=== PATIENT | female | born 1995 | race African-American/Black ===

== ENCOUNTER 2016-07-14 07:59 | Emergency (ER) | payer SELFPAY ==
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
[~2016-07-14 07:59] MED LIST: LISINOPRIL PO
== END 2016-07-14 09:30 | disposition home or self-care (01) ==
LOC: SED 07:59
DX: S33.5XXA Sprain of ligaments of lumbar spine, initial encounter (principal); I10 Essential (primary) hypertension; V43.62XA Car passenger injured in collision with other type car in traffic accident, initial encounter; Y92.410 Unspecified street and highway as the place of occurrence of the external cause
CPT/HCPCS: 72100; 99283